=== PATIENT | female | born 1985 ===

== ENCOUNTER 2017-12-23 14:18 | Emergency (ER) | payer OTHER ==
[2017-12-23 14:54] VITALS: BP 116/76; PULSE 81; RESP 19; TEMP 98.3; O2SAT 99
--- NOTE | 2017-12-23 16:08 | ED PDOC ---
Upper Extremity Pain/Injury Time Seen by Provider: 12/23/17 15:01 Chief Complaint (Nursing): Finger,Hand,&Wrist Chief Complaint (Provider): Left thumb pain History Per: Patient History/Exam Limitations: no limitations Onset/Duration Of Symptoms: Days Current Symptoms Are (Timing): Still Present Quality: "Pain" Additional Complaint(s): 32 year old female presents to the ED for an evaluation of left thumb. She was referred to the ED by clinic for to evaluate left thumb and rule out fracture. Patient states the door was slammed on her hand yesterday. PMD: Non H Provider Past Medical History Reviewed: Historical Data, Nursing Documentation, Vital Signs Vital Signs: Last Vital Signs Temp 98.3 F 12/23/17 14:52 Pulse 81 12/23/17 14:52 Resp 19 12/23/17 14:52 BP 116/76 12/23/17 14:52 Pulse Ox 99 12/23/17 14:52 - Medical History PMH: No Chronic Diseases - Family History Family History: States: Unknown Family Hx - Allergies Allergies/Adverse Reactions: Allergies Allergy/AdvReac Type Severity Reaction Status Date / Time No Known Allergies Allergy Verified 12/23/17 14:50 Review of Systems ROS Statement: Except As Marked, All Systems Reviewed And Found Negative Musculoskeletal: Positive for: Hand Pain (left) Physical Exam - Reviewed Nursing Documentation Reviewed: Yes Vital Signs Reviewed: Yes - Physical Exam Appears: Positive for: Non-toxic, No Acute Distress Head Exam: Positive for: ATRAUMATIC, NORMAL INSPECTION, NORMOCEPHALIC Skin: Positive for: Normal Color, Warm, DRY Eye Exam: Positive for: Normal appearance Extremity: Positive for: Normal ROM (full), Other (hematoma on left thumb) Neurologic/Psych: Positive for: Alert, Oriented - ECG O2 Sat by Pulse Oximetry: 99 (RA) Pulse Ox Interpretation: Normal Medical Decision Making Medical Decision Making: Time: 152 Initial Plan: --Hand Left Thumb [RAD] X-ray presents no fracture, no dislocation, as read by VINNIE. Upon provider evaluation patient is medically stable, and requires no further treatment in the ED at this time. Patient will be discharged and advised to ice , elevate, and take Motrin for pain. Counseling was provided and all questions were answered regarding diagnosis and need for follow up with clinic. There is agreement to discharge plan. Return if symptoms persist or worsen. Scribe Attestation: Documented by Lien Yadav, acting as a scribe for Zully Prado PA-C. Provider Scribe Attestation: All medical record entries made by the Scribe were at my direction and personally dictated by me. I have reviewed the chart and agree that the record accurately reflects my personal performance of the history, physical exam, medical decision making, and the department course for this patient. I have also personally directed, reviewed, and agree with the discharge instructions and disposition. Disposition - Clinical Impression Clinical Impression: Subungual contusion of fingernail - Disposition Referrals: [facility] [Outside] Disposition: Routine/Home Disposition Time: 16:08 Condition: GOOD Additional Instructions: Ice, elevation, motrin for pain. Instructions: Contusion (DC) Forms: [employer] (Puerto Rican)
--- NOTE | 2017-12-23 16:25 | RAD ---
Date of service: 12/23/2017 PROCEDURE: Left Thumb radiographs. HISTORY: injury COMPARISON: None. TECHNIQUE: AP radiograph of the left hand, as well as spot oblique and lateral images of thumb were obtained. FINDINGS: LEFT THUMB: Normal left thumb, without fracture or focal lesion. Remainder of the left hand (as seen on the AP view) grossly unremarkable. JOINTS: Normal. SOFT TISSUES: Normal. OTHER FINDINGS: None. IMPRESSION: Normal left thumb radiographs.
== END 2017-12-23 16:25 | disposition home or self-care (01) ==
LOC: SUPCPDRO 14:18 → H.ER 14:18
DX: S60.112A Contusion of left thumb with damage to nail, initial encounter (principal); W23.0XXA Caught, crushed, jammed, or pinched between moving objects, initial encounter

== ENCOUNTER 2017-12-25 07:50 | Emergency (ER) | payer OTHER ==
[2017-12-25 07:53] VITALS: BMI 24.9
[2017-12-25 07:54] VITALS: BP 119/78; PULSE 75; RESP 16; TEMP 98.7; O2SAT 98
--- NOTE | 2017-12-25 08:35 | ED PDOC ---
Upper Extremity Pain/Injury Time Seen by Provider: 12/25/17 07:54 Chief Complaint (Nursing): Abnormal Skin Integrity Chief Complaint (Provider): Abnormal Skin Integrity History Per: Patient History/Exam Limitations: no limitations Onset/Duration Of Symptoms: Days (3) Current Symptoms Are (Timing): Still Present Additional Complaint(s): 32 years old female presents to the ED for evaluation of worsening bruising in her left thumb after she caught it with car door 3 days ago. Patient reports she was seen here on December 23 in which x-ray results were negative for fracture. Patient reports taking Motrin for pain. PMD: non provided Past Medical History Reviewed: Historical Data, Nursing Documentation, Vital Signs Vital Signs: Last Vital Signs Temp 98.7 F 12/25/17 07:53 Pulse 75 12/25/17 07:53 Resp 16 12/25/17 07:53 BP 119/78 12/25/17 07:53 Pulse Ox 98 12/25/17 07:53 - Medical History PMH: No Chronic Diseases - Surgical History Surgical History: No Surg Hx - Family History Family History: States: Unknown Family Hx - Social History Current smoker - smoking cessation education provided: No Alcohol: None Drugs: Denies - Immunization History Hx Tetanus Toxoid Vaccination: No Hx Influenza Vaccination: No Hx Pneumococcal Vaccination: No - Home Medications Home Medications: Ambulatory Orders Medication Instructions Recorded Cephalexin [cephalexin] 500 mg PO QID #28 cap 12/25/17 - Allergies Allergies/Adverse Reactions: Allergies Allergy/AdvReac Type Severity Reaction Status Date / Time No Known Allergies Allergy Verified 12/25/17 08:03 Review of Systems ROS Statement: Except As Marked, All Systems Reviewed And Found Negative Musculoskeletal: Positive for: Hand Pain (Left thumb bruising) Physical Exam - Reviewed Nursing Documentation Reviewed: Yes Vital Signs Reviewed: Yes - Physical Exam Appears: Positive for: Non-toxic, No Acute Distress Extremity: Positive for: Normal ROM (of IP joint), Other (Left first digit subungual hematoma. Nail raised, + circumferential ecchymosis) Neurologic/Psych: Positive for: Alert, Oriented. Negative for: Motor/Sensory Deficits - ECG O2 Sat by Pulse Oximetry: 98 (RA) Pulse Ox Interpretation: Normal Medical Decision Making Medical Decision Making: Time: [address] Hughes, recommends trephination at multiple sites on nail. Discuss with patient that nail will probably fall off in future. Can perform trephination in ED or can send to his office for procedure. Pt states she would rather have it done in ED. PROCEDURE NOTE: 3 holes made in nail using cauterizer, blood drained, tolerated procedure well. Disposition - Clinical Impression Clinical Impression: Subungual contusion of fingernail - Disposition Referrals: Albert Hughes MD [Staff Provider] - Disposition: Routine/Home Disposition Time: 09:00 Condition: STABLE Additional Instructions: CONTINUE MOTRIN NEEDED FOR PAIN. Prescriptions: Cephalexin [cephalexin] 500 mg PO QID #28 cap Instructions: Nail Avulsion, Common Finger Injuries Forms: [facility] (Frisian) Print Language: YI
[2017-12-25] MEDS ORDERED: Tdap Vaccine 0.5 ml Vial (10-64 yrs) IM ONE (08:59)
[2017-12-25] MEDS: Tdap Vaccine 0.5 ml Vial (10-64 yrs) IM ONE (09:00)
== END 2017-12-25 09:15 | disposition home or self-care (01) ==
LOC: H.ER 07:50
DX: S60.112A Contusion of left thumb with damage to nail, initial encounter (principal); W22.8XXA Striking against or struck by other objects, initial encounter; Y92.89 Other specified places as the place of occurrence of the external cause